=== PATIENT | male | born 1980 | race Two or more races ===

== ENCOUNTER 2022-12-26 05:24 | Day surgery (SDC) | payer OTHER | END 2022-12-26 15:20 | disposition home or self-care (01) | LOC: CIR.AMB 05:24 | PROVIDERS: ATTEND Urology | DX: N43.3 Hydrocele, unspecified (principal); Z30.2 Encounter for sterilization; F12.90 Cannabis use, unspecified, uncomplicated; Z20.822 Contact with and (suspected) exposure to COVID-19 ==

== ENCOUNTER → 2022-12-26 06:11 | Outpatient (CLI) | payer OTHER | END | disposition home or self-care (01) | LOC: LAB 06:11 | PROVIDERS: ATTEND Urology | DX: Z20.822 Contact with and (suspected) exposure to COVID-19 (principal) ==